=== PATIENT | female | born 1980 | race Caucasian/White ===

== ENCOUNTER 2018-11-16 11:14 | Day surgery (SDC) | payer OTHER ==
[2018-11-16] MEDS ORDERED: PROPOFOL 20 ML ×2 (13:18→14:51)
[2018-11-16] MEDS ORDERED: ONDANSETRON 4 MG INJ IV (13:30)
[2018-11-16] MEDS ORDERED: ONDANSETRON 4 MG INJ (14:56)
== END 2018-11-16 15:47 | disposition home or self-care (01) ==
LOC: GIL 11:14
DX: K29.50 Unspecified chronic gastritis without bleeding (principal); K20.8 Other esophagitis
CPT/HCPCS: 43239; 84703; 88305; 88312; 88313